=== PATIENT | female | born 1935 | race Caucasian/White ===

== ENCOUNTER → 2020-08-04 | Outpatient (CLI) | payer OTHER ==
[~2020-08-04] MED LIST: ASPIRIN81 M1 PO; CALCIUM + D 6001 TA1 PO; CENTRUM SILVER1 TA1 PO; OMEGA-3 FISH1200 MG PO; PERCOCET 325 MG1 TA2 PO; PRESERVISION1 SGL PO; PRILOSEC OTC20 MG PO; SIMVASTATIN80 MG PO; SYNTHROID,LEVO50 MCG PO; VITAMIN C250 M1 PO; ZETIA10 MG PO
== END | disposition home or self-care (01) ==
LOC: LAB 13:37 → CT 14:00
PROVIDERS: ATTEND Urology
DX: K57.30 Diverticulosis of large intestine without perforation or abscess without bleeding (principal); N39.0 Urinary tract infection, site not specified; I70.0 Atherosclerosis of aorta; K76.89 Other specified diseases of liver